=== PATIENT | female | born 1985 | race Caucasian/White ===

== ENCOUNTER 2018-08-29 02:27 | Inpatient (IN) | payer OTHER ==
[2018-08-29] VITALS (9 sets, daily range): BP systolic 101–124; BP diastolic 50–97
[~2018-08-29] VITALS: Ht 160 cm; Wt 67.1 kg
--- NOTE | ~2018-08-29 | OP ---
[address] [address] OPERATIVE REPORT Name: VENESSA NOLAN Room: [address] IN M.R.#: [id number] Admission: 08/29/18 Attend Phys: Santos Mckeon Discharge: Date of : 85 Report #: [id number] THIS REPORT FOR: //name// CC: Lino Childers DATE OF SERVICE: 08/29/2018 INDICATIONS FOR PROCEDURE: The patient is a 33-year-old female who was admitted through the Emergency Department with right-sided flank pain. Evaluation with CT scan revealed a large 8 mm right ureteropelvic junction calculus associated with three other right lower pole renal stones. After discussing treatment options in detail, she presents for cystoscopy with right ureteroscopic stone extraction using holmium laser lithotripsy and right stent placement. PREOPERATIVE DIAGNOSIS: Multiple right renal calculi. POSTOPERATIVE DIAGNOSIS: Multiple right renal calculi. PROCEDURE: Cystoscopy, right ureteroscopic stone extraction using holmium laser lithotripsy, right double-J stent placement. SURGEON: Wellington Wilson MD ANESTHESIA: General. COMPLICATIONS: None. ESTIMATED BLOOD LOSS: Minimal. DESCRIPTION OF PROCEDURE: The patient was consented for the above procedure, was given broad-spectrum IV antibiotics preoperatively. She was given general anesthetic, placed in a dorsal lithotomy position. She was prepped and draped in the usual sterile fashion over the genitalia. The stones were easily seen on fluoroscopy. Cystoscopy was performed with a 21-Cameroonian sheath and 30-degree lens, which revealed no evidence of stones, ulcerations or tumors within the bladder itself. Ureteral orifices were in the proper position. A 0.35 floppy tipped guidewire was passed up the right ureter under fluoroscopic guidance past the stone and into the right renal pelvis without difficulty. Next, a 11/13 Cameroonian 28 cm ureteral access sheath was passed over the guidewire up to the mid portion of the right ureter under fluoroscopic guidance without difficulty. Minimal resistance was met. Next, the trocar and wire were removed leaving the sheath in place. Next, the flexible ureteroscope was used to perform ureteroscopy through the sheath, up the ureter and into the renal pelvis. This large stone that was lodged at the ureteropelvic junction was dropped off into the lower pole of the kidney. The 200 micron holmium laser [place] [address] OPERATIVE REPORT Name: VENESSA NOLAN Room: [address] IN [facility].#: [id number] Admission: 08/29/18 Attend Phys: Santos Mckeon Discharge: Date of : 85 Report #: [id number] fragment the stone into very small passable pieces. Once the stone was fragmented, I was able to identify the lower pole laura where the remaining stones were identified and actually all the fragments that I created by breaking up the original stone essentially dropped into this lower pole laura. The 200 micron holmium laser was then used to fragment all these renal stones into very small passable pieces. This went without event. There was minimal bleeding, no complications. Once I was comfortable with the size of all the fragments I removed the laser. I then used the Nitinol Zero Tip stone basket to basket some of the larger pieces to be sent off for stone analysis, but a large burden of very small passable fragments was left behind as they were too many and they were too small to remove. Once I was confident with the stone size, I removed the ureteroscope leaving the sheath in place. I replaced the wire through the sheath and up into the renal pelvis under fluoroscopic guidance. Sheath was then removed leaving the wire in place and a 4.8 x 26 double-J stent was passed over the wire with good curl noted in the renal pelvis and in the bladder after removing the wire. This was confirmed with fluoroscopy and cystoscopy. Next, the bladder was drained, the scope was removed. A Uro-Jet was placed per urethra for local anesthesia. The patient was awakened and sent to recovery room where she remained in stable condition. We will leave the stent in for 7-10 days. Follow up in the office with a KUB and remove her stent in the office. By: [id number] Wilson MD /isaura
[~2018-08-29 02:27] MED LIST: MIRENA1 EACH IY
[2018-08-29 03:03] LABS: ABSOLUTE BASOPHILS 0.1 thou/uL (0.0-0.2); ABSOLUTE EOSINOPHILS 0.3 thou/uL (0.0-0.7); ABSOLUTE LYMPHOCYTES 4.4 thou/uL (0.8-5.3); ABSOLUTE MONOCYTES 0.6 thou/uL (0.0-1.2); ABSOLUTE NEUTROPHILS 4.1 thou/uL (1.6-8.1); BASOPHILS 0.8 %; EOSINOPHILS 3.2 %; HEMATOCRIT 40.6 % (37.0-47.0); HEMOGLOBIN 14.3 gm/dL (12.0-15.0); LYMPHOCYTES 46.4 %; MCH 31.7 pg (26.0-34.0); MCHC 35.3 g/dL (28.0-37.0); MCV 89.8 fL (80.0-100.0); MONOCYTES 6.4 %; MPV 7.5 fl. (7.2-11.1); NUCLEATED RBCS 0 /100WBC; PLATELET COUNT* 265 thou/uL (150-400); POLYS 43.2 %; RBC 4.52 mil/uL (4.20-5.00); RDW-CV 12.4 % (10.5-14.5); WBC 9.4 thou/uL (4.0-11.0)
[2018-08-29 03:08] LABS: URINE BILIRUBIN NEGATIVE (Negative); URINE BLOOD 2+ (Negative); URINE CLARITY CLEAR; URINE COLOR YELLOW; URINE GLUCOSE-RANDOM NEGATIVE (Negative); URINE KETONES TRACE (Negative); URINE LEUKOCYTES-REFLEX NEGATIVE (Negative); URINE NITRITE-REFLEX NEGATIVE (Negative); URINE PROTEIN NEGATIVE (Negative); URINE SPECIFIC GRAVITY 1.025 (1.005-1.030); URINE UROBILINOGEN 0.2 E.U./dl (0.2-1.0)
[2018-08-29 03:10] LABS: CALCIUM 8.7 mg/dL (8.5-10.1); CREATININE 0.7 mg/dL (0.6-1.3); POTASSIUM 3.3 mmol/L (3.5-5.1)
[2018-08-29 03:12] LABS: ALBUMIN 3.7 g/dL (3.4-5.0); TOTAL BILIRUBIN 0.5 mg/dL (<0.1-1.0); TOTAL PROTEIN 6.8 g/dL (6.4-8.2)
[2018-08-29 03:56] LABS: CASTS None Seen /LPF (None Seen); MUCUS 0-3 Light strn/LPF (None Seen); SQUAMOUS >10 Many /LPF (0-3)
[2018-08-29 03:57] LABS: BACTERIA-REFLEX 1-9 Few /HPF (None Seen); CRYSTALS None Seen /LPF (None Seen); URINE RBC 3-10 Few /HPF (0-2); URINE WBC-REFLEX 0-5 Rare /HPF (0-5)
--- NOTE | 2018-08-29 05:36 | NUR ---
PT ADMITTED TO ROOM 107 FROM ER. PT MOVED SELF TO HOSPITAL BED. PT ORIENTED TO ROOM, CALL SYSTEM AND TV CONTROLS AND PT VOICED UNDERSTANDING. UPON ARRIVAL PT STA DONOVAN PAIN IN R FLANK WAS A 3. CURRENTLY PT C/O OF PAIN 9. DR CAI NOTIFIED AND NEW ORDER RECIEVED. RESP REG AND UNLABORED SKIN W/D. VSS NO ACUTE CHANGES DURIGN SHIFT. PT AWARE OF NPO STATES AND VERBALIZES UNDERSTANDING. WILL CONTINUE TO MONITOR
--- NOTE | 2018-08-29 14:25 | EKG ---
[place] [address] ELECTROCARDIOGRAM REPORT Name: VENESSA NOLAN Room: [address] ADM IN M.R.#: [id number] Admission: 08/29/18 Attend Phys: Santos Mckeon Discharge: Date of : 85 Report #: [id number] THIS REPORT FOR: //name// [facility] Test Date: 2018-08-29 Test Time: 12:09:14 Pat Name: VENESSA NOLAN Department: Room: [address] Gender: F Billing Analyst: MARILU : 1985 Requested By: Mandy Nuñez Order Number: [id number] MD: David Mackey Measurements Intervals [place] Rate: 59 P: 21 [place]: 148 QRS: 56 QRSD: 87 T: 52 QT: 406 QTc: 403 Interpretive Statements Sinus rhythm No previous ECG available for comparison Electronically Signed On 08-29-2018 14:25:17 RENTAL SALES AGENT by David Mackey [email or web address] <ELECTRONICALLY SIGNED> By: David Mackey MD, [facility] 08/29/18 1425 1209 1209 David Mackey MD, FACC /EPI
--- NOTE | 2018-08-29 14:52 | NUR ---
PT RETURNED FROM SURGERY, LITHOTRIPSY AND STENT PLACED. PT C/O NO PAIN. NO N/V AT THIS TIME. FLUIDS RESTARTED. PT ALERT AND ORIENTED. SIGNED OFF. FALL RISK PRECAUTIONS IN PLACE. HOURLY ROUNDING COMPLETED. WILL CONTINUE TO MONITOR.
--- NOTE | 2018-08-29 17:37 | NUR ---
PT REMAINED ALERT AND ORIENTED. PT DENIES PAIN BUT STATES DISCOMFORT AND FREQUENCY. PT TRANSFERRED TO ROOM 108, 107 BED AND CALL LIGHT NOT WORKING. FALL RISK PRECAUTIONS IN PLACE. HOURLY ROUNDING COMPELTED. WILL CONTINUE TO MONITOR.
[2018-08-30 00:40] VITALS: BP 94/53
[2018-08-30 04:29] VITALS: BP 100/57
[2018-08-30 04:36] LABS: CALCIUM 8.3 mg/dL (8.5-10.1); CREATININE 0.6 mg/dL (0.6-1.3); POTASSIUM 3.9 mmol/L (3.5-5.1)
[2018-08-30 04:42] LABS: HEMATOCRIT 33.6 % (37.0-47.0); MCH 32.1 pg (26.0-34.0); MCHC 35.7 g/dL (28.0-37.0); MPV 8.2 fl. (7.2-11.1); NUCLEATED RBCS 0 /100WBC; RBC 3.74 mil/uL (4.20-5.00); RDW-CV 12.4 % (10.5-14.5)
[2018-08-30 04:56] LABS: PLATELET COUNT* 188 thou/uL (150-400)
--- NOTE | 2018-08-30 05:36 | NUR ---
PATIENT REMAINS ALERT AND ORIENTED X 4 THROUGHOUT THE SHIFT AND RESTING AT INTERVALS ON HOURLY ROUNDS. UP SBA TO BR. URINE REMAINS PINK. NO NAUSEA. MEDICATED FOR RIGHT FLANK AND BLADDER PAIN X 4 OF THIS WRITING. VITAL SIGNS STABLE. MEDS AND IVF'S PER ORDERS. CONTINUE TO MONITOR.
[2018-08-30 06:16] LABS: ABSOLUTE LYMPHOCYTES 0.9 thou/uL (0.8-5.3); ABSOLUTE MONOCYTES 0.4 thou/uL (0.0-1.2); ABSOLUTE NEUTROPHILS 8.7 thou/uL (1.6-8.1)
[2018-08-30 06:17] LABS: PLATELET ESTIMATE ADEQUATE
[2018-08-30 07:45] VITALS: BP 104/71; BP 114/60
[2018-08-30] MEDS ORDERED: CIPRO500 MG PO (11:34)
[2018-08-30] MEDS ORDERED: FLOMAX0.4 MG PO (11:34)
[2018-08-30 12:12] VITALS: BP 114/60
[2018-08-30 12:18] VITALS: BP 114/60
[2018-08-30] MEDS ORDERED: NORCO 5-325 TA1 EACH PO (12:43)
--- NOTE | 2018-08-30 13:27 | NUR ---
PT DISCHARGED TO HOME VIA WHEELCHAIR ACCOMPANIED BY NURSING STAFF. DISCHARGE PAPERWORK HAS BEEN GONE OVER WITH PATIENT, 3 SCRIPTS SENT AND NO QUESTIONS AT THIS TIME.
[2018-08-31] MEDS ORDERED: PRILOSEC 20 MG20 MG PO (12:42)
[2018-09-01 13:09] LABS: STONE CA OXALATE MONOHYDRATE 85 % (()); STONE CALCIUM PHOSPHATE 15 % (()); STONE COLOR Brown (()); STONE WEIGHT 9.5 mg (())
== END 2018-08-30 13:23 | disposition home or self-care (01) | DRG 661 ==
LOC: M.ERS 02:27 → M.ORTHSURG 04:10 → M.TBA-ER 04:10 → M.ORTHSURG 04:18
PROVIDERS: Family Medicine; ADMIT Internal Medicine
PROC: 0TC38ZZ Extirpation of Matter from Right Kidney Pelvis, Via Natural or Artificial Opening Endoscopic (ICD-10-PCS; principal; 2018-08-29)
PROC: 0T738DZ Dilation of Right Kidney Pelvis with Intraluminal Device, Via Natural or Artificial Opening Endoscopic (ICD-10-PCS; principal; 2018-08-29)
DX: N13.2 Hydronephrosis with renal and ureteral calculous obstruction (principal); E87.6 Hypokalemia; R31.29 Other microscopic hematuria; F17.210 Nicotine dependence, cigarettes, uncomplicated

== ENCOUNTER 2018-08-31 10:35 | Emergency (ER) | payer OTHER ==
[~2018-08-31] VITALS: Ht 160 cm; Wt 61.2 kg
[~2018-08-31 10:35] MED LIST changes: +CIPRO500 MG PO; +FLOMAX0.4 MG PO; +NORCO 5-325 TA1 EACH PO
[2018-08-31 10:58] LABS: ABSOLUTE EOSINOPHILS 0.1 thou/uL (0.0-0.7); ABSOLUTE LYMPHOCYTES 2.4 thou/uL (0.8-5.3); ABSOLUTE MONOCYTES 0.5 thou/uL (0.0-1.2); ABSOLUTE NEUTROPHILS 4.1 thou/uL (1.6-8.1); BASOPHILS 0.5 %; EOSINOPHILS 1.6 %; HEMATOCRIT 38.8 % (37.0-47.0); HEMOGLOBIN 13.3 gm/dL (12.0-15.0); LYMPHOCYTES 32.8 %; MCH 31.1 pg (26.0-34.0); MCHC 34.3 g/dL (28.0-37.0); MCV 90.7 fL (80.0-100.0); MONOCYTES 7.6 %; MPV 7.6 fl. (7.2-11.1); NUCLEATED RBCS 0 /100WBC; PLATELET COUNT* 219 thou/uL (150-400); POLYS 57.5 %; RBC 4.28 mil/uL (4.20-5.00); RDW-CV 12.9 % (10.5-14.5); WBC 7.2 thou/uL (4.0-11.0)
[2018-08-31 11:04] LABS: ANION GAP 1 mmol/L (7-16); BUN 17 mg/dL (7-18); CHLORIDE 108 mmol/L (98-107); CO2 28 mmol/L (21-32); CREATININE 0.7 mg/dL (0.6-1.3); GLUCOSE 75 mg/dL (70-99); POTASSIUM 3.6 mmol/L (3.5-5.1); SODIUM 137 mmol/L (136-145)
[2018-08-31 11:07] LABS: APTT 22.6 Seconds (25.0-31.3); PROTIME 10.7 Seconds (9.20-11.50)
[2018-08-31 11:20] LABS: ALBUMIN 3.5 g/dL (3.4-5.0); ALKALINE PHOSPHATASE 44 U/L (46-116); CK-MB MASS < 0.5 ng/mL (<0.5-3.6); LIPASE 172 U/L (73-393); MAGNESIUM 1.7 mg/dL (1.8-2.4); NT-PRO BRAIN NAT PEPTIDE 216 pg/mL (<300); SGOT 43 U/L (15-37); SGPT 67 U/L (30-65); TOTAL BILIRUBIN 0.3 mg/dL (<0.1-1.0); TOTAL PROTEIN 6.7 g/dL (6.4-8.2); TROPONIN-I LEVEL <0.06 ng/mL (<0.06)
[2018-08-31] MEDS ORDERED: PRILOSEC 20 MG20 MG PO (12:42)
[2018-08-31 12:58] VITALS: BP 110/65
--- NOTE | 2018-08-31 16:10 | EKG ---
[place] [address] ELECTROCARDIOGRAM REPORT Name: VENESSA NOLAN [id number] Admission: 08/31/18 Attend Phys: Discharge: 08/31/18 Date of : 85 Report #: [id number] THIS REPORT FOR: //name// [facility] Test Date: 2018-08-31 Test Time: 10:42:08 Pat Name: VENESSA NOLAN Department: Room: Gender: F [employer] Terminal Operator: : 1985 Requested By: Shivam Mccall Order Number: [id number] MD: David Mackey Measurements Intervals [place] Rate: 72 P: 54 MT: 135 QRS: 46 QRSD: 88 T: 40 QT: 372 QTc: 408 Interpretive Statements Sinus rhythm Compared to ECG 08/29/2018 12:09:14 No significant changes Electronically Signed On 08-31-2018 16:10:13 ROTATING EQUIPMENT SPECIALIST by David Mackey [email or web address] <ELECTRONICALLY SIGNED> By: David Mackey MD, [facility] 08/31/18 1610 1042 1042 David Mackey MD, FACC /EPI
== END 2018-08-31 12:58 | disposition home or self-care (01) ==
LOC: M.ERS 10:35
PROVIDERS: Family Medicine
DX: R10.13 Epigastric pain (principal); R07.89 Other chest pain